=== PATIENT | male | born 1985 | race Two or more races ===

== ENCOUNTER 2018-06-09 03:51 | Emergency (ER) | payer MEDICAID ==
[~2018-06-09] VITALS: Ht 180.3 cm; Wt 104.3 kg
[2018-06-09] MEDS ORDERED: ONDANSETRON HCL/PF 4 MG/2 ML VIAL ONE (04:23)
[2018-06-09] MEDS ORDERED: MORPHINE SULFATE INJ 4 MG/ML DISP.SYRIN ONE (04:23)
[2018-06-09] MEDS ORDERED: MORPHINE SULFATE INJ 2 MG/ML DISP.SYRIN IV ONE (04:30)
[2018-06-09] MEDS ORDERED: ONDANSETRON HCL/PF 4 MG/2 ML VIAL IVP ONE (04:30)
--- NOTE | 2018-06-09 04:30 | NUR ---
MD AT BEDSIDE FOR EVALUATION
--- NOTE | 2018-06-09 04:30 | NUR ---
STOOL SAMPLE AND OCCULT SAMPLE COLLECTED, CALLED LAB FOR ACADEMIC ADVISING DIRECTOR
--- NOTE | 2018-06-09 04:30 | NUR ---
PT BIBSELF COMPLAINING OF LEFT UPPER QUADRANT ABDOMINAL PAIN X1 DAY. PT STATES HE NOTICED BLOOD IN STOOL EARLIER TODAY. PT DENIES NVD, CHEST PAIN, SOB. PT IS AAOX4. RESPIRATIONS EVEN AND UNLABORED. SKIN WARM AND INTACT. VITAL SIGNS STABLE. NO ACUTE DISTRESS NOTED AT THIS TIME. WILL CONTINUE TO MONITOR
--- NOTE | 2018-06-09 04:35 | NUR ---
IV INITIATED RIGHT AC 18G. LABS DRAWN FROM SITE, FUR STYLIST AT BEDSIDE FOR COLLECTION. IV INTACT AND PATENT, PLACED ON SALINE LOCK
[2018-06-09 04:55] LABS: OCCULT BLOOD STOOL NEGATIVE (NEGATIVE)
[2018-06-09 05:07] LABS: BASOPHILS # (AUTO) 0.1 /CMM (0.0-0.2); BASOPHILS % (AUTO) 0.5 % (0.0-2.0); EOSINOPHILS % (AUTO) 1.9 % (0.0-6.0); HEMATOCRIT 44 % (39-51); HEMOGLOBIN 15.3 g/dL (13.5-17.5); LYMPHOCYTES % (AUTO) 28.8 % (20.0-44.0); MEAN CORPUSCULAR HGB CONC 35 g/dl (31.0-36.0); MEAN CORPUSCULAR VOLUME 85 fL (80-96); MONOCYTES # (AUTO) 0.6 /CMM (0.1-1.30); MONOCYTES % (AUTO) 5.6 % (2.0-12.0); NEUTROPHILS # (AUTO) 6.6 /CMM (1.8-8.9); NEUTROPHILS % (AUTO) 63.2 % (43.0-81.0); PLATELET COUNT (AUTO) 340 /CMM (150-450); RED BLOOD CELL COUNT(AUTO) 5.19 MIL/uL (4.5-6.0); WHITE BLOOD COUNT (AUTO) 10.4 K/uL (4.3-11.0)
[2018-06-09 05:09] LABS: CALCIUM, SERUM 9.1 mg/dL (8.5-10.1); CREATININE 0.9 mg/dL (0.6-1.3); POTASSIUM 3.8 mmol/L (3.5-5.1)
[2018-06-09 05:15] LABS: ALBUMIN 3.8 g/dL (3.4-5.0); BILIRUBIN,DIRECT 0.1 mg/dL (0.0-0.2); BILIRUBIN,TOTAL 0.2 mg/dL (0.2-1.0); TOTAL PROTEIN, SERUM 7.3 g/dL (6.4-8.2)
[2018-06-09] MEDS ORDERED: CT SWABBABLE VALVE TRANS SET 1 EA INFUS.SET MC ONE (05:16)
[2018-06-09] MEDS ORDERED: IOHEXOL-300 100 ML VIAL IV ONE (05:16)
[2018-06-09] MEDS ORDERED: IV NS 0.9% 250 ML IV ONE (05:16)
--- NOTE | 2018-06-09 05:20 | NUR ---
PT BROUGHT BY RADIOLOGY FOR CT
--- NOTE | 2018-06-09 06:33 | NUR ---
Patient discharged to home in stable condition. Written and verbal after care instructions given. Patient verbalizes understanding of instruction. IV removed. Catheter intact and site benign. Pressure and 4x4 applied to site. No bleeding noted. Patient discharged to home in stable condition. Written and verbal after care instructions given. Patient verbalizes understanding of instruction. INSTRUCTED PT NOT TO DRIVE, PT STATES BROTHER WILL PICK HIM UP
[2018-06-09 06:35] VITALS: BP 110/76
== END 2018-06-09 06:36 | disposition home or self-care (01) ==
LOC: ER 03:58
DX: K92.1 Melena (principal); F17.200 Nicotine dependence, unspecified, uncomplicated; Z88.0 Allergy status to penicillin
CPT/HCPCS: 36415; 71045; 74177; 80048; 80076; 82272; 83690; 85025; 85730; 86850; 96374; 96375; 99284; A4606; J2270; J2405; J7050; Q9967; Z7610

== ENCOUNTER 2022-09-28 10:51 | Emergency (ER) | payer MEDICAID, OTHER ==
[~2022-09-28] VITALS: Ht 180.3 cm; Wt 117.9 kg
--- NOTE | 2022-09-28 11:00 | NUR ---
BIBS C/O LOWER BACK PAIN SINCE YESTERDAY. AMBULATORY, PLACED IN BED, IN PAIN 02/25 PS.
--- NOTE | 2022-09-28 11:25 | NUR ---
AT BEDSIDE FOR EVAL.
[2022-09-28] MEDS ORDERED: predniSONE 20 MG TABLET ONE (11:56)
[2022-09-28] MEDS ORDERED: KETOROLAC TROMETHAMINE INJ 30 MG/ML VIAL ONE (11:56)
[2022-09-28] MEDS ORDERED: IBUP-1955 PO (11:59)
[2022-09-28] MEDS ORDERED: CYCL5TAB PO (11:59)
[2022-09-28] MEDS ORDERED: PRED20TA PO (11:59)
[2022-09-28] MEDS ORDERED: HYDR-4209 PO (11:59)
[2022-09-28] MEDS ORDERED: KETOROLAC TROMETHAMINE INJ 30 MG/ML VIAL IM ONE (12:00)
[2022-09-28] MEDS ORDERED: predniSONE 20 MG TABLET PO ONE (12:00)
--- NOTE | 2022-09-28 12:16 | NUR ---
Patient discharged to home in stable condition. Written and verbal after care instructions given. Patient verbalizes understanding of instruction.
[2022-09-28 12:20] VITALS: BP 110/70
== END 2022-09-28 12:16 | disposition home or self-care (01) ==
LOC: ER 10:51
DX: M54.42 Lumbago with sciatica, left side (principal); F17.200 Nicotine dependence, unspecified, uncomplicated; Z79.899 Other long term (current) drug therapy; Z88.0 Allergy status to penicillin
CPT/HCPCS: 99283; 96372; J7512; J1885